=== PATIENT | male | born 1995 | race Two or more races ===

== ENCOUNTER 2021-02-26 08:12 | Emergency (ER) | payer OTHER ==
[~2021-02-26] VITALS: Ht 177.8 cm; Wt 62.1 kg
[2021-02-26] MEDS ORDERED: KETO10TA2 PO (11:00)
[2021-02-26] MEDS ORDERED: AMOX-CLAV 875-1 EACH PO (11:00)
== END 2021-02-26 11:16 | disposition home or self-care (01) ==
LOC: ER 08:12
DX: J03.90 Acute tonsillitis, unspecified (principal); Z20.822 Contact with and (suspected) exposure to COVID-19

== ENCOUNTER 2021-06-23 05:42 | Outpatient (CLI) | payer OTHER ==
[~2021-06-23 05:42] MED LIST: AMOX-CLAV 875-1 EACH PO; KETO10TA2 PO
== END 2021-06-23 15:00 | disposition home or self-care (01) ==
LOC: LAB 05:42
DX: Z20.818 Contact with and (suspected) exposure to other bacterial communicable diseases (principal); Z20.828 Contact with and (suspected) exposure to other viral communicable diseases